=== PATIENT | female | born 1965 | race Caucasian/White ===

== ENCOUNTER → 2024-08-19 15:20 | Outpatient (REF) | payer BC, SELFPAY | LOC: WDC 15:20 | PROVIDERS: ATTENDING PHYSICIAN Nurse Practitioner Adult Health | DX: Z12.31 Encounter for screening mammogram for malignant neoplasm of breast (principal) | CPT/HCPCS: 77063; 77067 ==

== ENCOUNTER → 2024-08-28 08:29 | Outpatient (REF) | payer BC, SELFPAY | LOC: WDC 08:29 | PROVIDERS: ATTENDING PHYSICIAN Nurse Practitioner Adult Health | DX: R92.8 Other abnormal and inconclusive findings on diagnostic imaging of breast (principal) | CPT/HCPCS: 76642 ==

== ENCOUNTER → 2024-09-02 08:17 | Outpatient (REF) | payer BC, SELFPAY ==
--- NOTE | 2024-09-02 14:48 | OID.BR.INTR ---
[facility] - Initial
- -
Date of Contact: 09/02/24
Met with patient. Patient given written information on navigator services at [facility]. Will follow up as needed per protocol.
== END ==
LOC: WDC 08:17
PROVIDERS: ATTENDING PHYSICIAN Nurse Practitioner Adult Health
DX: N63.11 Unspecified lump in the right breast, upper outer quadrant (principal)
CPT/HCPCS: 88305; 19083; 88341; 88342; 88360; A4648

== ENCOUNTER → 2024-09-15 16:45 | Outpatient (REF) | payer BC, SELFPAY | LOC: MRI 3T 16:45 | PROVIDERS: ATTENDING PHYSICIAN Surgery; FAMILY PHYSICIAN Nurse Practitioner Adult Health | DX: C50.411 Malignant neoplasm of upper-outer quadrant of right female breast (principal); Z17.0 Estrogen receptor positive status [ER+] | CPT/HCPCS: 77049; A9585 ==

== ENCOUNTER → 2024-09-22 08:53 | Outpatient (REF) | payer BC, SELFPAY | LOC: RCS 08:53 | DX: C50.811 Malignant neoplasm of overlapping sites of right female breast (principal); Z17.0 Estrogen receptor positive status [ER+] | CPT/HCPCS: 71046; 93005 ==